=== PATIENT | female | born 2000 | race African-American/Black ===

== ENCOUNTER 2020-08-06 | Emergency (ER) | payer OTHER, BC ==
--- NOTE | 2020-08-06 14:43 | ER ---
Nurse's Notes [facility] Name: Pablo Ramirez Age: 20 yrs Sex: Female : 2000 Arrival Date: 08/06/2020 Time: 12:47 Bed 14 Private MD: Diagnosis: Gastritis, unspecified Presentation: 08/06 13:20 Chief complaint: Patient states: "I noticed today after I brushed my teeth that my sv tongue had like yellow lines on it. I'm also getting the treatment for H.pylori.". Risk Assessment: Do you want to hurt yourself or someone else? Patient reports no desire to harm self or others. Onset of symptoms was August 06, 2020. 13:20 Method Of Arrival: Ambulatory sv 13:20 Acuity: AMAURY 4 sv 13:21 Coronavirus screen: Client denies travel out of the [place] in the last 14 days. At this sv time, the client does not indicate any symptoms associated with coronavirus-19. Ebola Screen: No symptoms or risks identified at this time. 13:22 Initial Sepsis Screen: Does the patient meet any 2 criteria? No. Patient's initial sv sepsis screen is negative. Does the patient have a suspected source of infection? No. Patient's initial sepsis screen is negative. Triage Assessment: 14:45 General: Appears in no apparent distress. comfortable, Behavior is calm, cooperative. vg1 Historical: - Allergies: 13:21 No Known Allergies; sv - PMHx: 13:21 None; sv - PSHx: 13:21 None; sv - Family history:: not pertinent. - Social history:: Smoking status: Patient denies any tobacco usage or history of. - Hospitalizations: : No recent hospitalization is reported. Screenin:45 Abuse screen: Denies threats or abuse. Nutritional screening: No deficits noted. vg1 Tuberculosis screening: No symptoms or risk factors identified. Fall Risk No fall in past 12 months (0 pts). No IV (0 pts). Ambulatory Aid- None/Bed Rest/Nurse Assist (0 pts). Gait- Normal/Bed Rest/Wheelchair (0 pts) Mental Status- Oriented to own ability (0 pts). Total Bui Fall Scale indicates No Risk (0-24 pts). Assessment: 14:45 General: Appears in no apparent distress. comfortable, Behavior is calm, cooperative. vg1 Pain: Denies pain. Neuro: Level of Consciousness is awake, alert, obeys commands, Oriented to person, place, time, situation. Cardiovascular: Patient's skin is warm and dry. Respiratory: Airway is patent Respiratory effort is even, unlabored, Respiratory pattern is regular, symmetrical. GI: Reports history of H Pylori. : No signs and/or symptoms were reported regarding the genitourinary system. EENT: tongue has yellow tint.. Derm: Skin is intact, is healthy with good turgor, Skin is pink, warm \\T\\ dry. Musculoskeletal: Range of motion: intact in all extremities. Vital Signs: 13:22 BP 120 / 83; Pulse 83; Resp 16; Temp 98; Pulse Ox 100% ; Weight 63.5 kg; Height 5 ft. 4 sv in. (162.56 cm); Pain 0/10; 13:22 Body Mass Index 24.03 (63.50 kg, 162.56 cm) sv ED Course: 12:47 Patient arrived in ED. rg4 13:20 Arm band placed on. sv 13:21 Triage completed. sv 14:37 Solitario Monroy MD is Attending Physician. rn 14:41 Jodi Gaytan RN is Primary Nurse. vg1 14:45 Patient has correct armband on for positive identification. Bed in low position. Call vg1 light in reach. Adult w/ patient. 15:00 No provider procedures requiring assistance completed. Patient did not have IV access vg1 during this emergency room visit. Administered Medications: No medications were administered Outcome: 14:42 Discharge ordered by . rn 15:00 Discharged to home ambulatory. vg1 15:00 Condition: stable 15:00 Discharge instructions given to patient, Instructed on discharge instructions, follow up and referral plans. Demonstrated understanding of instructions, follow-up care. 15:01 Patient left the ED. vg1 Signatures: Sidra Sagastume RN RN sv Nieto, Roman, MD MD rn Garcia, Rubi rgJodi Flood RN RN vg1 Corrections: (The following items were deleted from the chart) 13:22 13:20 Chief complaint: Patient states: "I noticed today after I brushed my teeth that sv my tongue had like yellow lines on it." sv 13:23 13:22 Pulse 83bpm; Resp 16bpm; Pulse Ox 100%; Temp 98F; 63.5 kg; Height 5 ft. 4 in.; sv BMI: 24.0; Pain 0/10; sv 19:35 19:34 No provider procedures requiring assistance completed. vg1 vg1 19:34 Patient did not have IV access during this emergency room visit. vg1 vg1
--- NOTE | 2020-08-06 14:43 | EDPHYS ---
Physician Documentation [facility] Name: Pablo Ramirez Age: 20 yrs Sex: Female : 2000 Arrival Date: 08/06/2020 Time: 12:47 Bed 14 Private MD: ED Physician Solitario Monroy HPI: 08/06 14:37 This 20 yrs old Black Female presents to ER via Ambulatory with complaints of Tongue Is rn Yellow. 14:37 The patient presents with Yellow tongue. Onset: The symptoms/episode began/occurred rn today. Duration: The symptoms are continuous. Modifying factors: The symptoms are alleviated by nothing, the symptoms are aggravated by nothing. Severity of symptoms: At their worst the symptoms were mild, in the emergency department the symptoms are unchanged. The patient has not experienced similar symptoms in the past. The patient has been recently seen by a physician:. Reports being treated for H. Pylori infection, noticed today when brushing teeth had a yellow tongue. . Historical: - Allergies: 13:21 No Known Allergies; sv - PMHx: 13:21 None; sv - PSHx: 13:21 None; sv - Family history:: not pertinent. - Social history:: Smoking status: Patient denies any tobacco usage or history of. - Hospitalizations: : No recent hospitalization is reported. ROS: 14:37 Constitutional: Negative for fever, chills, and weight loss, ENT: +yellow tongue rn Abdomen/GI: Negative for abdominal pain, nausea, vomiting, diarrhea, and constipation. Exam: 14:37 Constitutional: This is a well developed, well nourished patient who is awake, alert, rn and in no acute distress. ENT: Faint yellow discoloration of tongue, no swelling, no stridor Vital Signs: 13:22 BP 120 / 83; Pulse 83; Resp 16; Temp 98; Pulse Ox 100% ; Weight 63.5 kg; Height 5 ft. 4 sv in. (162.56 cm); Pain 0/10; 13:22 Body Mass Index 24.03 (63.50 kg, 162.56 cm) sv MDM: 14:37 Patient medically screened. rn 14:37 Differential diagnosis: gastritis, h. pylori infection. Data reviewed: vital signs, rn nurses notes, and as a result, I will discharge patient. Counseling: I had a detailed discussion with the patient and/or guardian regarding: the historical points, exam findings, and any diagnostic results supporting the discharge/admit diagnosis, the need for outpatient follow up, to return to the emergency department if symptoms worsen or persist or if there are any questions or concerns that arise at home. Special discussion: I discussed with the patient/guardian in detail that at this point there is no indication for admission to the hospital. It is understood, however, that if the symptoms persist or worsen the patient needs to return immediately for re-evaluation. Administered Medications: No medications were administered Disposition: 08/06/20 14:42 Discharged to Home. Impression: Gastritis, unspecified. - Condition is Stable. - Discharge Instructions: Gastritis, Adult. - Medication Reconciliation Form, Thank You Letter, Antibiotic Education, Prescription Opioid Use form. - Follow up: Private Physician; When: As needed; Reason: Recheck today's complaints, Re-evaluation by your physician. - Problem is new. - Symptoms have improved. Signatures: Sidra Sagastume RN RN sv Solitario Monroy MD MD rn Garcia, Victoria, RN RN vg1 Corrections: (The following items were deleted from the chart) 15:01 14:42 08/06/2020 14:42 Discharged to Home. Impression: Gastritis, unspecified. vg1 Condition is Stable. Forms are Medication Reconciliation Form, Thank You Letter, Antibiotic Education, Prescription Opioid Use. Follow up: Private Physician; When: As needed; Reason: Recheck today's complaints, Re-evaluation by your physician. Problem is new. Symptoms have improved. rn
== END 2020-08-06 15:01 | disposition home or self-care (01) ==
DX: K29.70 Gastritis, unspecified, without bleeding (principal)
CPT/HCPCS: 99281